=== PATIENT | female | born 1945 | race Caucasian/White ===

== ENCOUNTER 2018-04-20 14:58 | Emergency (ER) | payer MEDICARE ==
[2018-04-20] MEDS ORDERED: LABETALOL HCL INJ 20 MG/4 ML DISP.SYRIN IV ONE (16:03)
[2018-04-20] MEDS ORDERED: METOPROLOL TARTRATE PF/INJ 5 MG/5 ML SDV IV ONE (16:04)
--- NOTE | 2018-04-20 16:08 | ER Document Report ---
ED General - General Chief Complaint: Headache Stated Complaint: HEADACHE Time Seen by Provider: 04/20/18 15:52 Mode of Arrival: Ambulatory Information source: Patient Notes: This is a 72-year-old female with a history of hypertension, seizures (last seizure 4 years ago), 1/2 pack/day smoker who is brought into the emergency room with right sided posterior headache. Patient states she was usual state of health and was watching TV when she had sudden onset of the posterior headache. She denies any recent fevers, chills, nausea or vomiting. She denies any focal motor weakness or slurred speech. Patient has been prescribed atenolol and seizure medicine which she has not taken for a while. She currently has no primary care doctor. TRAVEL OUTSIDE OF THE [place] IN LAST 30 DAYS: No - HPI Onset: Just prior to arrival Onset/Duration: Sudden Quality of pain: Dull Severity: Moderate Pain Level: 3 Associated symptoms: denies: Chest pain, Fever, Shortness of breath Exacerbated by: Denies Relieved by: Denies Similar symptoms previously: No Recently seen / treated by doctor: No - Related Data Allergies/Adverse Reactions: No Known Allergies Allergy (Unverified 11/23/10 10:37) Past Medical History - General Information source: Patient - Social History Smoking Status: Current Every Day Smoker Cigarette use (# per day): Yes Chew tobacco use (# tins/day): No - Pack and a half a day Frequency of alcohol use: None Drug Abuse: None Lives with: Family Family History: Reviewed & Not Pertinent Patient has suicidal ideation: No Patient has homicidal ideation: No - Past Medical History Cardiac Medical History: Reports: Hx Hypercholesterolemia, Hx Hypertension Neurological Medical History: Reports: Hx Seizures Past Surgical History: Reports: Hx Hysterectomy Review of Systems - Review of Systems Constitutional: denies: Chills, Fever EENT: No symptoms reported Cardiovascular: denies: Chest pain, Palpitations, Heart racing Respiratory: denies: Cough, Short of breath, Wheezing Gastrointestinal: No symptoms reported Genitourinary: No symptoms reported Female Genitourinary: No symptoms reported Musculoskeletal: No symptoms reported Skin: No symptoms reported Hematologic/Lymphatic: No symptoms reported Neurological/Psychological: See HPI Physical Exam - Vital signs Vitals: Pulse Ox 96 04/20/18 15:07 Notes: Physical exam: GENERAL: Patient is alert and oriented x3, no acute distress. She is complaining of a right-sided posterior headache. HEAD: Atraumatic, normocephalic. EYES: Pupils equal round and reactive to light, extraocular movements intact, sclera anicteric, conjunctiva are normal. ENT: TMs normal, nares patent, oropharynx clear without exudates. Moist mucous membranes. NECK: Normal range of motion, supple without obvious mass or JVD. LUNGS: Breath sounds clear to auscultation bilaterally and equal. No wheezes rales or rhonchi. HEART: Regular rate and rhythm without murmurs, rubs or gallops. ABDOMEN: Soft, normoactive bowel sounds. No tenderness to palpation. No guarding, no rebound. No masses appreciated. EXTREMITIES: Normal range of motion, no pitting or edema. No clubbing or cyanosis. NEUROLOGICAL: Cranial nerves II through XII grossly intact. She will beltran are intact. Normal speech, moving all extremities. There is 5/5, sensory grossly intact, cerebellar (finger to nose) is good. Reflexes are symmetrical. PSYCH: Normal mood, normal affect. SKIN: Warm, Dry, normal turgor, no rashes or lesions noted. Course - Re-evaluation Re-evalutation: 04/20/18 22:55 Note: Patient's initial blood pressure was 194/126. Patient was given IV metoprolol followed by IV Norvasc and her back pressure came down slowly over ti me. Patient's headache was resolved after blood pressure reduction and IV Reglan and Benadryl and Toradol. CT of the head showed no bleed. CTA of the head showed no aneurysm. Patient's labs looked acceptable. On reassessment, the patient's headache had resolved completely. She was sitting in the stretcher and smiling and asking to go home. Her repeat blood pressure at that time was 154/92. I did talk to her about cigarette smoking. I did warn her that she is prone to strokes with uncontrolled blood pressure and she is willing to go back on an antihypertensive. She does states she is complaining of her seizure medicines. And they will be following up with the primary care doctor ([facility] [place] - Vital Signs Vital signs: Temp Pulse Resp BP Pulse Ox 98.3 F 22 H 134/97 H 97 04/20/18 15:42 04/20/18 19:51 04/20/18 19:51 04/20/18 19:51 - Laboratory Result Diagrams: 04/20/18 16:15 04/20/18 16:15 Laboratory results interpreted by me: 04/20/18 04/20/18 16:15 16:15 ESR 31 H Glucose 118 H Calcium 10.5 H - Diagnostic Test Radiology reviewed: Image reviewed, Reports reviewed - CT of the head shows no bleed. CTA of the brain shows no aneurysm. - EKG Interpretation by Me Rate: Tachycardia - EKG shows sinus tachycardia with a ventricular rate of 113, no acute ST-T wave changes. Discharge - Discharge Clinical Impression: Hypertension, Headache Condition: Stable Disposition: HOME, SELF-CARE Additional Instructions: As we discussed, your labs look quite good today. Your sugar was mildly elevated but it was a nonfasting sugar and those tend to be not as accurate. Your kidney function was good and your electrolytes were normal. Given the sudden a severe headache, CT scan was done and showed no evidence of bleeding or aneurysm. Follow-up with a primary care doctor as planned. Take the blood pressure medicine daily as prescribed. Continue with your seizure medicine. Return to the emergency room for worsening headache, weakness, or any concerns that you are getting worse. Prescriptions: Amlodipine Besylate [Norvasc 10 mg Tablet] 10 mg PO DAILY #30 tablet
[2018-04-20 16:26] LABS: ABSOLUTE BASOPHILS # (AUTO) 0.1 10^3/uL (0.0-0.2); ABSOLUTE EOSINOPHILS # (AUTO) 0.1 10^3/uL (0.0-0.6); ABSOLUTE MONOCYTES (AUTO) 0.5 10^3/uL (0.1-1.4); ABSOLUTE NEUT (AUTO) 7.9 10^3/uL (1.7-8.2); BASOPHILS % (AUTO) 0.7 % (0-2); EOSINOPHILS % (AUTO) 1.3 % (0-6); HEMATOCRIT 43.5 % (36.0-47.0); HEMOGLOBIN 15.1 g/dL (12.0-15.5); LYMPHOCYTES % (AUTO) 18.7 % (13-45); MEAN CORPUSCULAR HGB CONC 34.8 g/dL (32.0-36.0); MEAN CORPUSCULAR VOLUME 89 fl (80-97); MONOCYTES % (AUTO) 4.5 % (3-13); PLATELET COUNT 267 10^3/uL (150-450); RED BLOOD COUNT 4.87 10^6/uL (3.72-5.28); RED CELL DISTRIBUTION WIDTH 13.7 % (11.5-14.0); SEGMENTED NEUTROPHILS % (AUTO) 74.8 % (42-78); TOTAL CELLS COUNTED % (AUTO) 100 %; WHITE BLOOD COUNT 10.5 10^3/uL (4.0-10.5)
[2018-04-20 16:30] LABS: INTERNATIONAL RATION (INR) 0.92; PROTHROMBIN TIME 12.8 SEC (11.4-15.4)
[2018-04-20] MEDS: METOPROLOL TARTRATE PF/INJ 5 MG/5 ML SDV IV PRN ×2 (16:36→16:47)
[2018-04-20 16:45] LABS: ALANINE AMINOTRANSFERASE 25 U/L (9-52); ALBUMIN 4.8 g/dL (3.5-5.0); ALKALINE PHOSPHATASE 115 U/L (38-126); ANION GAP 10 (5-19); ASPARTATE AMINO TRANSFERASE 26 U/L (14-36); BILIRUBIN,DIRECT 0.2 mg/dL (0.0-0.4); BILIRUBIN,TOTAL 0.4 mg/dL (0.2-1.3); BLOOD UREA NITROGEN 19 mg/dL (7-20); CALCIUM 10.5 mg/dL (8.4-10.2); CARBON DIOXIDE 26 mmol/L (22-30); CHLORIDE 103 mmol/L (98-107); GLUCOSE 118 mg/dL (75-110); POTASSIUM 4.4 mmol/L (3.6-5.0); SODIUM 139.2 mmol/L (137-145); TOTAL PROTEIN 8.1 g/dL (6.3-8.2)
[2018-04-20 17:00] LABS: FREE T3 3.5 pg/mL (2.77-5.27); FREE T4 (FREE THYROXINE) 1.31 ng/dL (0.78-2.19)
[2018-04-20 17:03] LABS: ERYTHROCYTE SEDIMENTATION RATE 31 mm/hr (0-30)
[2018-04-20 17:14] LABS: THYROID STIMULATING HORMONE 2.74 uIU/mL (0.47-4.68)
--- NOTE | 2018-04-20 17:37 | RADIOLOGY REPORT (SQ) ---
EXAM DESCRIPTION: CT HEAD WITHOUT COMPLETED DATE/TIME: 04/20/2018 5:28 pm REASON FOR STUDY: right sided MCCLAIN, HTN COMPARISON: 07/07/2015 TECHNIQUE: Axial images acquired through the brain without intravenous contrast. Images reviewed wi th bone, brain and subdural windows. Additional sagittal and coronal reconstructions were generated. Images stored on PACS. All CT scanners at this facility use dose modulation, iterative reconstruction, and/or weight based d osing when appropriate to reduce radiation dose to as low as reasonably achievable (ALARA). [facility]: Dose Right [facility]: CareDose [facility]: Dose Right [facility]: Teradose 4D [facility]: Smart [employer] RADIATION DOSE: CT Rad equipment meets quality standard of care and radiation dose reduction techniq ues were employed. CTDIvol: 53.2 mGy. DLP: 1017 mGy-cm.mGy. LIMITATIONS: None. FINDINGS: VENTRICLES: Prominent. CEREBRUM: No masses. No hemorrhage. No midline shift. Areas of low density in the white matter mos t likely due to chronic micro-vascular ischemic change. No evidence for acute infarction. CEREBELLUM: No masses. No hemorrhage. No alteration of density. No evidence for acute infarction. EXTRAAXIAL SPACES: Age-related involutional change. No fluid collections. No masses. ORBITS AND GLOBE: No intra- or extraconal masses. Normal contour of globe without masses. CALVARIUM: No fracture. PARANASAL SINUSES: No fluid or mucosal thickening. SOFT TISSUES: No mass or hematoma. OTHER: No other significant finding. IMPRESSION: CHRONIC CHANGES OF ATROPHY AND MICROVASCULAR ISCHEMIA. NO ACUTE PROCESS. EVIDENCE OF ACUTE STROKE: NO. TECHNICAL DOCUMENTATION: JOB ID: [id number] Quality ID # [id number]: Final reports with documentation of one or more dose reduction techniques (e.g., Au tomated exposure control, adjustment of the mA and/or kV according to patient size, use of iterative reconstruction technique) 2010 [employer]- All Rights Reserved Reading location - IP/workstation name: [email or web address]
--- NOTE | 2018-04-20 17:39 | RADIOLOGY REPORT (SQ) ---
EXAM DESCRIPTION: CTA HEAD COMPLETED DATE/TIME: 04/20/2018 5:28 pm REASON FOR STUDY: headache COMPARISON: None. TECHNIQUE: Post IV contrast scanning, thin section axial imaging through the brain to evaluate the a rterial structures. Source and MIP images are saved and reviewed on PACS. Advanced 3D imaging as volume-rendering, MIPs, SSD performed? yes All CT scanners at this facility use dose modulation, iterative reconstruction, and/or weight based d osing when appropriate to reduce radiation dose to as low as reasonably achievable (ALARA). [facility]: Dose Right [facility]: CareDose [facility]: Dose Right [facility]: Teradose 4D [facility]: [employer] CONTRAST TYPE AND DOSE: contrast/concentration: Isovue 350.00 mg/ml; Total Contrast Delivered: 70.0 ml; Total Saline Delivered: 75.0 ml RENAL FUNCTION: GFR > 60. LIMITATIONS: In the FINDINGS: [place]: The anterior, middle, posterior cerebral arteries are all patent. No ev idence of aneurysm or focal stenosis. POSTERIOR CIRCULATION: The distal vertebral arteries are patent as is the basilar artery. No aneurysm . BRAIN: No gross enhancing lesions as visualized. The superior cerebral hemispheres are not included in the field of view. BONES: Intact as visualized. SINUSES: No fluid or mucosal thickening. OTHER: No other significant finding. IMPRESSION: NO CTA EVIDENCE OF STENOSIS OR ANEURYSM OF THE [place]. TECHNICAL DOCUMENTATION: JOB ID: [id number] Quality ID # [id number]: Final reports with documentation of one or more dose reduction techniques (e.g., Au tomated exposure control, adjustment of the mA and/or kV according to patient size, use of iterative reconstruction technique) 2010 [employer]- All Rights Reserved Reading location - IP/workstation name: [email or web address]
[2018-04-20] MEDS ORDERED: HYDRALAZINE HCL INJ/PF 20 MG/1 ML SDV IV ONE (18:31)
[2018-04-20] MEDS ORDERED: KETOROLAC TROMETHAMINE INJ/PF 30 MG/1 ML SDV IV ONE (18:31)
[2018-04-20 20:12] VITALS: BP 134/97
--- NOTE | 2018-04-20 22:54 | EKG REPORT ---
SEVERITY:- ABNORMAL ECG - SINUS TACHYCARDIA PROBABLE INFERIOR INFARCT, OLD : Confirmed by: Tri Rodas 20-Apr-2018 22:54:18
== END 2018-04-20 20:12 | disposition home or self-care (01) ==
LOC: ER 14:58
DX: I10 Essential (primary) hypertension (principal); R51 Headache; R00.0 Tachycardia, unspecified; F17.210 Nicotine dependence, cigarettes, uncomplicated; Z71.6 Tobacco abuse counseling
CPT/HCPCS: 93005; 99284; 96374; 96375; 36415; 84439; 84443; 85025; 85652; 85610; 80053; 84481; 70450; 70496; 93010; J0360; J1885; J3490